=== PATIENT | female | born 1950 | race Caucasian/White ===

== ENCOUNTER 2022-03-22 14:00 | Outpatient (RCR) | payer MEDICARE, OTHER, SELFPAY ==
--- NOTE | 2022-02-06 15:39 | OTOPEVAL ---
OCCUPATIONAL THERAPY INITIAL EVALUATION: 02/06/2022 Thank you for referring Eliane Upton to [facility].? The patient is scheduled to be seen for therapy? 0-1x/week for 6 weeks. Please review, sign, date and return this plan of care BRITTNEY. I agree with and certify that the following plan of care is medically necessary. Referring Physician Date Attending Provider: Amanda Ardon *OT Outpatient Evaluation Start: 02/02/22 14:53 Freq: Status: Active Protocol: Document 02/06/22 12:38 KJL (Rec: 02/06/22 14:17 KJL [id number]) Assessment Status Evaluation Evaluation Information Problem Diagnosis L hand numbness/tinging Cause March 2021 Additional Evaluation Detail Patient began having numbness and tingling of digits 3-5 of L UE hand in March of 2021. Patient reports this resolved some but has continued to have some numbness/tingling of primarily digits 3 and radial half of digit 4, in addition to occasionally digits 1-2, ulnar half of digit 4 and digit 5. Patient began to notice weakness in L hand with gripping grasping items, having to utilize pinching. Subjective Information Patient reports hand feels Query Text:As Reported By Patient/ weird , reports weakness with Family griping, grasping items, dropping items on occasion. Patient reports had carpal tunnel many years ago when driving long distances, but it resolved on its own. Prior Level of Function Activity Level (Last 3 Months) Hand Dominance Right Activity of Daily Living Ability Independent Indoor/Home Mobility Independent Community Mobility Independent Stairs Ability Independent Functional Cognition (Planning, Shopping Independent , Taking Medications) Cooking Yes Cleaning Yes Laundry Yes Shopping Yes Driving Yes Home Setting Home Type House Pain Assessment Timing of Pain Assessment Timing of Pain Assessment Assessment Pain Scale Pain Scale Used Numeric (1 - 10) Self Report Pain Assessment Left Hand(s) Reported Pain Level 1 Pain Description
--- NOTE | 2022-02-27 11:59 | PCOTNOTE ---
Patient did not show up for scheduled appointment this date. Therapist called patient who reports has been very busy and has not completed exercises as much as she should. Patient was re-scheduled for a re-evaluation on 03/01/2022.
--- NOTE | 2022-03-20 14:54 | PCOTNOTE ---
Patient scheduled today at 13:00 for a OT appointment. Patient called today and reports did not realize that she had a OT appointment today and would like to re-schedule. Patient's OT appointment re-scheduled to 03/22/2022 at 14:00.
--- NOTE | 2022-03-22 14:52 | OTOPDC ---
Assessment and note entered by GRIFFIN Coker/[place] Evaluation Information Assessment Status Discharge Onset March 2021 Subjective Information Patient reports has been complete HEP more regularly in addition to adhering to splint wearing schedule. Patient reports hand has greatly improved and does not feel like it is asleep all the time. Patient reports is able to drive a long distance and did not have any numbness. Patient reports the only aggravations at this time are holding a tablet for a long period of time or laying on arm. Patient reports using wrist cock up orthotic has helped significantly at night time and no longer wakes up with numbness. Reported Pain Level Pain Score 0: Self Report Assessment OT Clinical Summary Eliane is a 72 year old female presenting to Outpatient OT for treatment of median nerve compression symptoms. Patient has implemented conservative management strategies including nerve glides, UE exercise, adhering to splint wearing schedule. Patient reports carpal tunnel symptoms have decreased significantly and no longer becomes numb with driving. Patients dry can tender strength improved from 36lbs to 43lbs. Patient is pleased with progress. Skilled OT no longer indicated, plan to discharge at this time independent with HEP materials. Plan of Care OT Services Indicated No
== END 2022-03-23 10:48 | disposition home or self-care (01) ==
LOC: ANHGOSHOT 14:00
PROVIDERS: PCP Family Medicine
DX: R20.0 Anesthesia of skin (principal); R20.2 Paresthesia of skin
CPT/HCPCS: 97110; 97165; 97763; 99199; L3906

== ENCOUNTER 2022-04-13 08:36 | Outpatient (CLI) | payer MEDICARE, OTHER, SELFPAY ==
--- NOTE | 2022-04-13 11:00 | NEURO_ITS ---
Impression: # History of bilateral hand numbness. # Mild bilateral Carpal Tunnel Syndrome, left worse than right. # Normal needle/EMG exam. # Clinical correlation recommended. Motor Nerve Conduction Upper Extremities Median Nerve Conduction Velocity (m/sec) Terminal Latency (msec) Response Voltage(mV) Elbow-Wrist Wrist Elbow Wrist Right 58 3.1 4 5 Left 59 3.8 4 4 Ulnar Nerve Conduction Velocity (m/sec) Terminal Latency (msec) Response Voltage(mV) Above Elbow Below Elbow Wrist Above Elbow Below Elbow Wrist Right 53 63 2.5 4 4 5 Left 58 60 2.2 3 3 4 F-Wave Latency Median (ms) Ulnar (ms) Right 27.0 27.6 Left 27.4 27.3 Sensory Nerve Conduction Upper Extremities Median Nerve Stimulation Terminal Latency (msec) Wrist/Digit Response Voltage (uV) Wrist Right 3.7/3.7 13/24 Left 4.4/4.8 15/10 Ulnar Nerve Stimulation Terminal Latency (msec) Wrist/Digit Response Voltage (uV) Wrist Right 2.8 26 Left 2.7 37 Radial Nerve Terminal Latency (msec) Response Voltage(mV) Right 1.7 23 Left 1.9 19 Left Right Muscles Examined Fibrillation Fasciculation Scarcity Voltage Duration Left Right Left Right Left Right Left Right Left Right Deltoid Biceps x x Brachioradialis Triceps x x Pronator Teres x x Ext Indicis x x Ext Digitorum x x Abd Poll Brev x x 1st Dorsal Interosseus Paraspinals MTDD
== END 2022-04-13 08:37 | disposition home or self-care (01) ==
DX: R20.0 Anesthesia of skin (principal); R20.2 Paresthesia of skin; G56.03 Carpal tunnel syndrome, bilateral upper limbs
CPT/HCPCS: 95886; 95911